=== PATIENT | female | born 1940 | race African-American/Black ===

== ENCOUNTER 2018-05-16 20:13 | Emergency (ER) | payer MEDICARE ==
[~2018-05-16] VITALS: Ht 170.2 cm; Wt 72.6 kg
--- NOTE | 2018-05-16 22:18 | RAD ---
Exam performed: CT scan of the head and cervical spine without contrast. Date of Service: 05/16/2018, Comparison: None available Clinical History: Patient fell and hit head complaining of headache and neck pain Technique: Helical acquisitions are obtained from the foramen magnum to the vertex without intravenous administration of contrast. In addition helical acquisitions are obtained through the cervical spine. Sagittal and coronal reformatted images are obtained and reviewed. CT scan head findings: The ventricular system is midline without evidence of dilatation. Normal king-white differentiation is maintained. There is no extra axial fluid collection, intraparenchymal hemorrhage or mass lesion. The visualized orbits, paranasal sinuses and the mastoid air cells are clear. Punctate calcifications are seen in both parotid glands. The calvarium is intact. Impression: 1. No acute intracranial process detected. End Impression. CT cervical spine findings: Normal sagittal alignment is preserved. The vertebral body heights and intravertebral disc spaces are maintained. There is no philip or retrolisthesis. No prevertebral soft tissue swelling is identified. There are no fractures. No definite lymphadenopathy or masses are seen within the neck. The visualized thyroid and salivary glands appears preserved. Punctate calcifications seen in both parotid glands are probably related to prior infection Impression: 1. No acute abnormality seen in the CT scan cervical spine. PQRS Compliance Statement: One or more of the following individualized dose reduction techniques were utilized for this examination: 1. Automated exposure control 2. Adjustment of the mA and/or kV according to patient size 3. Use of iterative reconstruction technique Electronically signed by: Renetta Steele MD (05/16/2018 10:14 PM) [facility]
--- NOTE | 2018-05-16 22:27 | PHYS DOC ---
Past Medical History Past Medical History: No Pertinent History Past Surgical History: Tubal ligation Alcohol Use: None Drug Use: None Adult General Chief Complaint Chief Complaint: MECHANICAL FALL HPI HPI Patient is a 77 year old [f__sex] who presents with [] Review of Systems Review of Systems Constitutional: Denies fever or chills [] Eyes: Denies change in visual acuity, redness, or eye pain [] HENT: Denies nasal congestion or sore throat [] Respiratory: Denies cough or shortness of breath [] Cardiovascular: No additional information not addressed in HPI [] GI: Denies abdominal pain, nausea, vomiting, bloody stools or diarrhea [] : Denies dysuria or hematuria [] Musculoskeletal: Denies back pain or joint pain [] Integument: Denies rash or skin lesions [] Neurologic: Denies headache, focal weakness or sensory changes [] Endocrine: Denies polyuria or polydipsia [] All other systems were reviewed and found to be within normal limits, except as documented in this note. Allergies Allergies Allergies Coded Allergies Type Severity Reaction Last Updated Verified No Known Drug Allergies 05/16/18 No Physical Exam Physical Exam Constitutional: Well developed, well nourished, no acute distress, non-toxic appearance. [] HENT: Normocephalic, atraumatic, bilateral external ears normal, oropharynx moist, no oral exudates, nose normal. [] Eyes: PERRLA, EOMI, conjunctiva normal, no discharge. [] Neck: Normal range of motion, no tenderness, supple, no stridor. [] Cardiovascular:Heart rate regular rhythm, no murmur [] Lungs & Thorax: Bilateral breath sounds clear to auscultation [] Abdomen: Bowel sounds normal, soft, no tenderness, no masses, no pulsatile masses. [] Skin: Warm, dry, no erythema, no rash. [] Back: No tenderness, no CVA tenderness. [] Extremities: No tenderness, no cyanosis, no clubbing, ROM intact, no edema. [] Neurologic: Alert and oriented X 3, normal motor function, normal sensory function, no focal deficits noted. [] Psychologic: Affect normal, judgement normal, mood normal. [] Current Patient Data Vital Signs Vital Signs Date Time Temp Pulse Resp B/P (MAP) Pulse Ox O2 Delivery O2 Flow Rate FiO2 05/16/18 20:28 98.4 81 32 175/80 (111) 98 Room Air 98.4 EKG EKG [] Radiology/Procedures Radiology/Procedures PROCEDURE: CT HEAD AND CERVICAL SPINE WO Exam performed: CT scan of the head and cervical spine without contrast. Date of Service: 05/16/2018, Comparison: None available Clinical History: Patient fell and hit head complaining of headache and neck pain Technique: Helical acquisitions are obtained from the foramen magnum to the vertex without intravenous administration of contrast. In addition helical acquisitions are obtained through the cervical spine. Sagittal and coronal reformatted images are obtained and reviewed. CT scan head findings: The ventricular system is midline without evidence of dilatation. Normal king-white differentiation is maintained. There is no extra axial fluid collection, intraparenchymal hemorrhage or mass lesion. The visualized orbits, paranasal sinuses and the mastoid air cells are clear. Punctate calcifications are seen in both parotid glands. The calvarium is intact. Impression: 1. No acute intracranial process detected. End Impression. CT cervical spine findings: Normal sagittal alignment is preserved. The vertebral body heights and intravertebral disc spaces are maintained. There is no philip or retrolisthesis. No prevertebral soft tissue swelling is identified. There are no fractures. No definite lymphadenopathy or masses are seen within the neck. The visualized thyroid and salivary glands appears preserved. Punctate calcifications seen in both parotid glands are probably related to prior infection Impression: 1. No acute abnormality seen in the CT scan cervical spine. [] R elbow x-ray negative for any acute fx or dislocation read by Dr. Odom. Course & Med Decision Making Course & Med Decision Making Pertinent Labs and Imaging studies reviewed. (See chart for details) [] Dragon Disclaimer Dragon Disclaimer This electronic medical record was generated, in whole or in part, using a voice recognition dictation system. Departure Departure Impression: Primary Impression: Fall Additional Impressions: Closed head injury without loss of consciousness Contusion of right elbow, initial encounter Disposition: 01 HOME, SELF-CARE Condition: STABLE Referrals: NO PCP (PCP) Patient Instructions: Elbow Contusion, Head Injury, Adult, [id number] Additional Instructions: Recommend application of ice, elevation, and rest of affected extremity. Wear the aaron wrap that was placed. Follow up with your primary care doctor in 2-3 days if symptoms persist. Return to the ER if your symptoms worsen. Problem Qualifiers Primary Impression: Fall Encounter type: initial encounter Qualified Codes: W19.XXXA - Unspecified fall, initial encounter Additional Impressions: Closed head injury without loss of consciousness Encounter type: initial encounter Qualified Codes: S09.90XA - Unspecified injury of head, initial encounter RONEN ROOT APRN May 16, 2018 22:27
[2018-05-16 23:00] VITALS: BP 160/74
--- NOTE | 2018-05-16 23:23 | RAD ---
Exam performed: Right elbow 3 views. Indication: Patient fell of the elbow complaining of right elbow pain Date of Service: 05/16/2018. Comparison: None available Three views right elbow findings: Normal alignment is preserved. There is no acute fracture or dislocation. No obvious soft tissue swelling or foreign bodies identified. Impression: 1. No definite abnormality seen in the right elbow. Electronically signed by: Renetta Steele MD (05/16/2018 11:19 PM) [facility]
== END 2018-05-16 23:42 | disposition home or self-care (01) ==
LOC: ER 20:13
DX: S50.01XA Contusion of right elbow, initial encounter (principal); S09.90XA Unspecified injury of head, initial encounter; W18.39XA Other fall on same level, initial encounter; Y93.89 Activity, other specified; Y92.89 Other specified places as the place of occurrence of the external cause; Y99.8 Other external cause status
CPT/HCPCS: 70450; 72125; 73080; 99284-25